=== PATIENT | female | born 1975 | race Caucasian/White ===

== ENCOUNTER 2022-02-27 14:32 | Outpatient (CLI) | payer OTHER, SELFPAY | END 2022-02-27 14:33 | disposition home or self-care (01) | LOC: LONREF 14:33 | PROVIDERS: PCP Family Medicine; Visit Provider Obstetrics & Gynecology | DX: Z01.419 Encounter for gynecological examination (general) (routine) without abnormal findings (principal); Z12.4 Encounter for screening for malignant neoplasm of cervix | CPT/HCPCS: 87624; 88175 ==

== ENCOUNTER 2022-03-31 08:41 | Outpatient (CLI) | payer OTHER, SELFPAY | END 2022-03-31 08:42 | disposition home or self-care (01) | LOC: OP CLINIC 08:42 | PROVIDERS: PCP Family Medicine; Visit Provider Surgery | DX: Z12.11 Encounter for screening for malignant neoplasm of colon (principal) | CPT/HCPCS: 45378; 99153; J2250; J3010 ==

== ENCOUNTER 2025-03-27 10:05 | Outpatient (CLI) | payer OTHER, SELFPAY ==
--- NOTE | 2025-03-27 10:15 | CRLHL7_ITS ---
For Patients: As a result of the Century Cures Act, medical imaging exams and procedure reports are released immediately into your electronic medical record. You may view this report before your referring provider. If you have questions, please contact your health care provider. BILATERAL DIGITAL SCREENING MAMMOGRAM WITH COMPUTER-AIDED DETECTION AND TOMOSYNTHESIS CLINICAL HISTORY: Routine screening exam. COMPARISON: Mammograms 01/16/2019 and 10/27/2017. TECHNIQUE: Digital mammogram in CC and MLO projections including computer-aided detection (CAD) and tomosynthesis. BREAST COMPOSITION: The breasts are heterogeneously dense, which may obscure small masses. FINDINGS: RIGHT Breast: No suspicious findings. LEFT Breast: There is possible architectural distortion in the outer breast 3 cm from the nipple with possible correlate in the slightly upper breast. IMPRESSION: LEFT breast possible architectural distortion. RECOMMENDATIONS: Additional mammographic views of the LEFT breast including a 90-degree lateral view and spot compression views in CC and MLO projections with tomosynthesis. LEFT breast ultrasound may also be required. A member of the health care team will contact the patient to schedule the required additional imaging appointment(s). BI-RADS Category 0: Incomplete: Need Additional Imaging Evaluation Dictated by Lizzy Patrick MD @ 03/27/2025 3:52:21 PM [email or web address]/Dictated by: Lizzy Patrick MD @ 03/27/2025 3:52:00 PM (Electronically Signed)
== END 2025-03-27 10:06 | disposition home or self-care (01) ==
LOC: MAMMO 10:05
PROVIDERS: PCP Family Medicine; Visit Provider Obstetrics & Gynecology
DX: Z12.31 Encounter for screening mammogram for malignant neoplasm of breast (principal); R92.333 Mammographic heterogeneous density, bilateral breasts
CPT/HCPCS: 77063; 77067

== ENCOUNTER 2025-04-10 10:34 | Outpatient (CLI) | payer OTHER, SELFPAY ==
--- NOTE | 2025-04-10 10:45 | CRLHL7_ITS ---
For Patients: As a result of the Century Cures Act, medical imaging exams and procedure reports are released immediately into your electronic medical record. You may view this report before your referring provider. If you have questions, please contact your health care provider. DIGITAL DIAGNOSTIC LEFT MAMMOGRAM USING TOMOSYNTHESIS LEFT BREAST ULTRASOUND CLINICAL HISTORY: LEFT breast mass/asymmetry. COMPARISON: 03/27/2025, 01/16/2019. TECHNIQUE: Digital LEFT mammogram in three projections. Tomosynthesis was used in this interpretation. Real-time ultrasound imaging of LEFT breast with imaging documentation. Scanning was performed by both the technologist and the radiologist. BREAST COMPOSITION: The breast is heterogeneously dense, which may obscure small masses. FINDINGS: Additional mammographic views LEFT breast submitted. Decreased conspicuity of the previously noted asymmetric density compared to the prior study. No architectural distortion. No suspicious calcifications. Targeted LEFT breast ultrasound performed at 2 o`clock 3 cm from the nipple. In this location, there is a simple circumscribed anechoic cyst at posterior depth which measures 4 millimeters. No suspicious findings. IMPRESSION: Benign 4 millimeter cyst left breast 2 o`clock 3 cm from the nipple. Normal dense fibroglandular tissue. No evidence of malignancy. RECOMMENDATIONS: Routine screening mammography. A lay language report of this examination will be provided to the patient. BI-RADS Category 2: Benign Dictated by Nathan Killian MD @ 04/10/2025 12:27:07 PM [email or web address]/Dictated by: Nathan Killian MD @ 04/10/2025 12:27:00 PM (Electronically Signed)
--- NOTE | 2025-04-10 11:15 | CRLHL7_ITS ---
For Patients: As a result of the Cures Act, medical imaging exams and procedure reports are released immediately into your electronic medical record. You may view this report before your referring provider. If you have questions, please contact your health care provider. SEE DIGITAL DIAGNOSTIC LEFT MAMMOGRAM PERFORMED SAME DAY [email or web address]/Dictated by: Nathan Killian MD @ 04/10/2025 12:25:00 PM (Electronically Signed)
== END 2025-04-10 10:35 | disposition home or self-care (01) ==
LOC: MAMMO 10:35
PROVIDERS: PCP Family Medicine; Visit Provider Obstetrics & Gynecology
DX: N63.20 Unspecified lump in the left breast, unspecified quadrant (principal); R92.8 Other abnormal and inconclusive findings on diagnostic imaging of breast
CPT/HCPCS: 76642; 77065; G0279